=== PATIENT | male | born 1925 | race Caucasian/White ===

== ENCOUNTER → 2016-08-03 | Outpatient (CLI) | payer MEDICARE, OTHER ==
[2016-08-03 12:39] LABS: Prothrombin Time 96.8 sec (9.0-12.0)
[2016-08-03 13:13] LABS: INR 9.2 (<1.1)
== END | disposition home or self-care (01) ==
LOC: LABWHC1 11:28
PROVIDERS: ATTEND Internal Medicine Cardiovascular Disease
DX: I48.2 Chronic atrial fibrillation (principal)
CPT/HCPCS: 36415; 85610